=== PATIENT | male | born 1995 | race African-American/Black ===

== ENCOUNTER 2021-01-16 10:40 | Emergency (ER) | payer MEDICAID ==
[~2021-01-16] VITALS: Ht 165.1 cm; Wt 57.0 kg
[2021-01-16] MEDS ORDERED: BACITRACIN ZINC OINT UDPKT TOP ONE (11:45)
[2021-01-16] MEDS ORDERED: LIDOCAINE HCL/EPINEPHRINE 1%-EPI 1:100,000 20 ML VIAL INFIL ONE (11:45)
[2021-01-16] MEDS ORDERED: TETANUS, DIPHTHERIA, PERTUSSIS VAC/PF 0.5ML (>10YR OLD) IM ONE (11:45)
[2021-01-16 13:42] VITALS: BP 117/85
== END 2021-01-16 13:43 | disposition home or self-care (01) ==
LOC: ER 10:40
DX: S01.112A Laceration without foreign body of left eyelid and periocular area, initial encounter (principal); Y04.0XXA Assault by unarmed brawl or fight, initial encounter; Y93.89 Activity, other specified; Y92.89 Other specified places as the place of occurrence of the external cause; Y99.8 Other external cause status
CPT/HCPCS: 12013; 70450; 70486; 90471; 90715; 99284; J3490

== ENCOUNTER 2021-01-22 10:00 | Emergency (ER) | payer MEDICAID ==
[~2021-01-22] VITALS: Ht 165.1 cm; Wt 54.0 kg
[2021-01-22 10:02] VITALS: BP 93/66
== END 2021-01-22 11:40 | disposition home or self-care (01) ==
LOC: ER 10:00
DX: Z48.02 Encounter for removal of sutures (principal)
CPT/HCPCS: 99281